=== PATIENT | male | born 1935 | race African-American/Black ===

== ENCOUNTER 2019-10-03 12:25 | Inpatient (IN) | payer MEDICARE, OTHER ==
[~2019-10-03] VITALS: Ht 180.3 cm; Wt 72.6 kg
[2019-10-03] VITALS (9 sets, daily range): BP systolic 88–139; BP diastolic 34–90
[2019-10-03] MEDS ORDERED: ACETAMINOPHEN 650 MG SUPP PR ONE (12:38)
[2019-10-03] MEDS ORDERED: PIPER-TAZ 3.375 GM 50 ML ONE (12:38)
[2019-10-03] MEDS ORDERED: SODIUM CHLORIDE 0.9% 1000ML 3,000 ML ONE (12:38)
[2019-10-03] MEDS ORDERED: PIPER-TAZ 3.375 GM 50 ML IV ONE (12:45)
[2019-10-03 13:48] LABS: BASOPHILS % 0.2 % (0.0-1.0); HEMATOCRIT 34.7 % (38.2-49.6); HEMOGLOBIN 10.2 g/dL (14.0-18.0); LYMPHOCYTES # (AUTO) 0.7 (1.0-3.2); LYMPHOCYTES % 5.2 % (18.0-39.1); MEAN CORPUSCULAR HEMOGLOBIN 24.4 pg (28-32); MEAN CORPUSCULAR HGB CONC 29.4 g/dL (31-35); MONOCYTES # (AUTO) 0.9 (0.2-0.8); MONOCYTES % 6.2 % (4.4-11.3); NEUTROPHILS # (AUTO) 12.4 (2.1-6.9); NEUTROPHILS % 87.6 % (38.7-80.0); PLATELET COUNT 175 x10e3/uL (140-360); RED BLOOD COUNT 4.18 x10e6/uL (4.3-5.7)
[2019-10-03] MEDS ORDERED: HALOPERIDOL LACTATE 5 MG/ML VIAL ONE (13:51)
[2019-10-03 13:55] LABS: INR 1.61; PROTHROMBIN TIME 20.3 seconds (11.9-14.5)
[2019-10-03 13:56] LABS: PARTIAL THROMBOPLASTIN TIME 26.3 seconds (23.8-35.5)
[2019-10-03 13:59] LABS: INFLUENZAE A&B ANTIGEN (RAPID) NEGATIVE (NEGATIVE)
[2019-10-03] MEDS ORDERED: LORAZEPAM INJ 2 MG/ML VIAL IV SCH (14:00)
[2019-10-03 14:05] LABS: ALBUMIN 3.1 g/dL (3.5-5.0); ALBUMIN/GLOBULIN RATIO 0.8 (0.8-2.0); ANION GAP 25.2 mmol/L (8-16); CALCIUM 8.5 mg/dL (8.4-10.2); CREATININE, SERUM 5.02 mg/dL (0.72-1.25); MAGNESIUM 2.6 MG/DL (1.3-2.1); POTASSIUM 4.2 mmol/L (3.5-5.1)
[2019-10-03 14:12] LABS: CREATINE KINASE MB 2.6 ng/mL (0-5.0)
--- NOTE | 2019-10-03 14:33 | Diagnostic Imaging Report ---
TECHNIQUE: Frontal view of the chest. INDICATION: ^SOB ^[id number] ^1315. COMPARISON: None. FINDINGS: LINES/TUBES: None. LUNGS: There is a punctate calcified granuloma over the left base. There is a nodular opacity in the left apex which is associated with some scar and measures 1.3 cm. There is likely scarring and bronchiectasis in the right medial upper lobe. Bilateral nipple shadows. PLEURA: No pneumothorax or significant pleural effusion. HEART AND MEDIASTINUM: The cardiomediastinal silhouette is within normal limits. SOFT TISSUES AND BONES: Cholecystectomy clips in the right upper quadrant. Moderate degenerative changes of the glenohumeral joints. IMPRESSION: 1. No acute intrathoracic abnormality. 2. Scarring and bronchiectasis in the right medial upper lobe. 3. There is some scarring in the left apex along with a nodular opacity which measures 1.3 cm. Further evaluation with a chest CT is recommended on a nonemergent basis to exclude a neoplasm. Signed by: Ezequiel Allen JR, MD on 10/03/2019 2:30 PM
[2019-10-03] MEDS ORDERED: LORAZEPAM INJ 2 MG/ML VIAL IV ONE (15:00)
[2019-10-03 15:18] LABS: CLARITY,URINE CLEAR (CLEAR); COLOR,URINE YELLOW (YELLOW); KETONES,URINE NEGATIVE (NEGATIVE); LEUKOCYTE ESTERASE ,URINE NEGATIVE (NEGATIVE); NITRITE,URINE NEGATIVE (NEGATIVE); PROTEIN,URINE DIPSTICK 1+ (NEGATIVE)
[2019-10-03 15:19] LABS: BILIRUBIN,URINE 1+ (NEGATIVE); URINE UROBILINOGEN 0.2 mg/dL (0.2 - 1)
[2019-10-03 15:32] LABS: BACTERIA,URINE RARE /HPF
[2019-10-03 15:33] LABS: EPITHELIAL CELLS,URINE RARE /LPF
--- OUTSIDE RECORDS SUMMARY | 2019-10-03 16:02 | XMS REPORT ---
Author [facility] Address Unknown Phone Unavailable Care Team Providers Care Component Prep Operator Name Role Phone XAVIER MOTA Unavailable Unavailable Problems This patient has no known problems. Allergies, Adverse Reactions, Alerts This patient has no known allergies or adverse reactions. Medications This patient has no known medications. Results Test Description Test Time Test Comments Text Results Atomic Results Result Comments CHEST SINGLE (PORTABLE) 2019-10-03 14:21:00 [place] [address] Patient Name: TRUDI OROURKE MR #: [id number] : 1935 Age/Sex: 84/M Req #: [id number] Adm Physician: Ordered by: AXVIER MOTA DO Report #: [id number] Location: ER Room/Bed: Procedure: [id number] DX/CHEST SINGLE (PORTABLE) Exam Date: 10/03/19 Exam Time: 1314 REPORT STATUS: Signed TECHNIQUE: Frontal view of the chest. INDICATION: SOB [id number] 1315. COMPARISON: None. FINDINGS: LINES/TUBES: None. LUNGS: There is a punctate calcified granuloma over the left base. There is a nodular opacity in the left apex which is associated with some scar and measures 1.3 cm. There is likely scarring and bronchiectasis in the right medial upper lobe. Bilateral nipple shadows. PLEURA: No pneumothorax or significant pleural effusion. HEART AND MEDIASTINUM: The cardiomediastinal silhouette is within normal limits. SOFT TISSUES AND BONES: Cholecystectomy clips in the right upper quadrant. Moderate degenerative changes of the glenohumeral joints. IMPRESSION: 1. No acute intrathoracic abnormality. 2. Scarring and bronchiectasis in the right medial upper lobe. 3. There is some scarring in the left apex along with a nodular opacity which measures 1.3 cm. Further evaluation with a chest CT is recommended on a nonemergent basis to exclude a neoplasm. Si gned by: Ezequiel Allen JR, MD on 10/03/2019 2:30 PM Dictated By: EZEQUIEL ALLEN MD 1430 Transcribed By: GELACIO on 10/03/19 1430 COPY TO: XAVIER MOTA DO
[2019-10-03] MEDS ORDERED: SODIUM CHLORIDE 0.9% 1000ML 1,000 ML IV SCH ×2 (16:30)
--- NOTE | 2019-10-03 17:01 | NUR ---
NOW IN AFIB CONTROLLED. NO ECTOPY NOTED. MD NOTIFIED OF RHYTHM
[2019-10-03] MEDS ORDERED: DEXTROSE 5% 1,000 ML IV STA (17:06)
[2019-10-03 17:16] LABS: ANION GAP 18.1 mmol/L (8-16); CREATININE, SERUM 4.9 mg/dL (0.72-1.25); POTASSIUM 4.1 mmol/L (3.5-5.1)
[2019-10-03] MEDS ORDERED: FA-80.8 MG (17:38)
[2019-10-03] MEDS ORDERED: AMLODIPINE BESY10 MG (17:38)
[2019-10-03] MEDS ORDERED: NAMENDA XR28 MG (17:38)
[2019-10-03] MEDS ORDERED: FLOMAX0.4 MG (17:38)
[2019-10-03] MEDS ORDERED: TRAZODONE HCL50 MG (17:38)
[2019-10-03] MEDS ORDERED: ALPRAZOLAM0.25 MG (17:38)
[2019-10-03] MEDS ORDERED: XARELTO20 MG (17:38)
[2019-10-03] MEDS ORDERED: DONEPEZIL HCL10 MG (17:38)
[2019-10-03] MEDS ORDERED: FLUOXETINE HCL20 MG (17:38)
--- NOTE | 2019-10-03 20:22 | NUR ---
Pulmonary/CCM [id number] UTI, Pneumonia, r/o other critically ill individual. needs serial neuro checks, serial abdominal checks, serial sodium checks, serial UOP and respiratory checks. family needs to consider advanced directives-- i wanted to make sure they have initiated conversations. They were not available now.
[2019-10-03] MEDS ORDERED: VANCOMYCIN 1GM/NS 250 ML 250 ML IV ONE (20:30)
[2019-10-03] MEDS ORDERED: THIAMINE HCL INJ 100 MG/ML 2ML VIAL IV ONE (21:00)
[2019-10-03 21:02] LABS: LYMPHOCYTES % (MANUAL) 9 % (19-48); METAMYELOCYTES % (MANUAL) 3 % (0-0); MONOCYTES % (MANUAL) 4 % (3.4-9.0); MYELOCYTES % (MANUAL) 3 % (0-0); NEUTROPHILS % (MANUAL) 81 % (40-74)
[2019-10-03 21:03] LABS: HYPOCHROMASIA SLIGHT; PLATELET ESTIMATE ADEQUATE; PLATELET MORPHOLOGY COMMENT NORMAL; RBC MORPHOLOGY COMMENT NORMAL
--- NOTE | 2019-10-03 21:14 | Consultation ---
DATE OF CONSULTATION: 10/03/2019 Pulmonary Critical Care Medicine Consult PRIMARY CARE DOCTOR: Dr. Kothari. HISTORY OF PRESENT ILLNESS: Mr. Salmon is a pleasant 84-year-old gentleman with shortness of breath. The patient had some history of baseline asthma; however, the patient had a pattern of worsening. History was limited, but the patient did come in with hypoxemia, 83% oxygen saturation, but responded to 96% when the patient was suctioned by RT. The patient was obtunded. Chest x-ray performed demonstrating regional right upper lobe pneumonitis. However, of note, the patient is very dehydrated with sodium level 174, BUN 50, creatinine 5.0. CK 370. BNP 254. Albumin 3.1. White count 14. The patient's INR is 1.61. The patient noted with the need for close monitoring, therefore, sent to the ICU. PAST MEDICAL HISTORY: Atrial fibrillation, diverticulosis, hypertension, cholecystectomy, bilateral inguinal hernia repair, cataract repair. MEDICATIONS: Medication list reviewed per the chart record include alprazolam, amlodipine, fluoxetine, Xarelto, tamsulosin, trazodone, donepezil, folic acid, memantine. ALLERGIES: NO KNOWN DRUG ALLERGIES. SOCIAL HISTORY: No smoking, no drinking, no drugs on previous reports. FAMILY HISTORY: Noncontributory to this condition. REVIEW OF SYSTEMS: Unable to get as he is altered. PHYSICAL EXAMINATION: VITAL SIGNS: Afebrile right now, although he had 102.8 upon admission; heart rate 117, decreased to 84; blood pressure recently 88/69. GENERAL: Obtunded, looks pale, in bed. HEENT: Normocephalic and atraumatic. NECK: Supple. Throat midline. LUNGS: Bilateral air entry, limited due to decreased participation, clear. CARDIOVASCULAR: S1 and S2. No murmurs, rubs, or gallops. ABDOMEN: Soft and nontender. EXTREMITIES: No clubbing. No cyanosis. There is no edema. INTEGUMENT: No rash. He does have very mild stasis changes to legs without jose d edema. No purpura. LABORATORY DATA: Influenza antigen negative. Group A Streptococcus testing negative. Urinalysis; 11-20 rbc's, 6-10 wbc's, 4+ hematuria, 25 bicarbonate. Latest sodium came down to 171, latest lactic acid 2.3, latest creatinine 4.9. No ABG yet. IMPRESSION AND PLAN: 1. Severe sepsis, evolving multiorgan dysfunction. 2. Febrile syndrome, sepsis, urinary tract infection, pneumonia. Rule out other conditions. 3. Encephalopathy, toxic/metabolic. Underlying dementia surmise. 4. Critical hypernatremia. 5. Mild anemia. 6. Coagulopathy, likely Xarelto related. Rule out superimposed disseminated intravascular coagulation. 7. Acute kidney failure. 8. Lactic acidosis. 9. Mild hypoalbuminemia, likely worsened. 10. Severe dehydration. 11. Hematuria. 12. Hypertension. 13. Surmise benign prostatic hypertrophy, on Flomax. 14. Atrial fibrillation with rate control. Give slow, steady hydration assay. Followup organ failure. Serial x-rays. Try to avoid intubation, but the patient may need intubation. Follow up viral testing. Continue oxygen per protocol for now. The patient in very critical condition. We will try to fill advance directive to the family and goals of care as the patient at this age will have a tough time responding to his multiorgan dysfunction if it flourishes. Thank you very much, Dr. Castellon, for this consult. Please call for questions. Greater than 30 minutes in direct care and coordination on this date. Multiple evaluation. MD BEE Xiao/MODL /[id number]
[2019-10-03] MEDS: DEXTROSE 5% 1,000 ML IV SCH (21:29)
[2019-10-03] MEDS: HEPARIN SOD (PORCINE) 5,000 UNIT/ML VIAL SC SCH (21:30)
[2019-10-03] MEDS: AZITHROMYCIN 500MG/NS 250 ML 250 ML IV SCH (21:38)
[2019-10-03 23:40] LABS: ANION GAP 20.5 mmol/L (8-16); CALCIUM 8.1 mg/dL (8.4-10.2); CREATININE, SERUM 5.39 mg/dL (0.72-1.25); MAGNESIUM 2.6 MG/DL (1.3-2.1); PHOSPHORUS 7.8 MG/DL (2.3-4.7); POTASSIUM 4.5 mmol/L (3.5-5.1)
[2019-10-04] VITALS (26 sets, daily range): BP systolic 98–154; BP diastolic 62–95
[2019-10-04] MEDS: PIPERACILLIN/TAZO 2.25 GM 50 ML IV SCH ×2 (01:03→05:52)
[2019-10-04] MEDS: DEXTROSE 5% 1,000 ML IV SCH (03:57)
[2019-10-04 04:22] LABS: BASOPHILS % 0.1 % (0.0-1.0); HEMATOCRIT 37.5 % (38.2-49.6); HEMOGLOBIN 10.9 g/dL (14.0-18.0); LYMPHOCYTES # (AUTO) 0.6 (1.0-3.2); LYMPHOCYTES % 5.7 % (18.0-39.1); MEAN CORPUSCULAR HEMOGLOBIN 24.5 pg (28-32); MEAN CORPUSCULAR HGB CONC 29.1 g/dL (31-35); MEAN CORPUSCULAR VOLUME 84.5 fL (81-99); MONOCYTES # (AUTO) 0.7 (0.2-0.8); MONOCYTES % 6.5 % (4.4-11.3); NEUTROPHILS # (AUTO) 8.7 (2.1-6.9); NEUTROPHILS % 87.4 % (38.7-80.0); PLATELET COUNT 117 x10e3/uL (140-360); RED BLOOD COUNT 4.44 x10e6/uL (4.3-5.7); RED CELL DISTRIBUTION WIDTH 21.1 % (11.7-14.4)
[2019-10-04 04:33] LABS: INR 1.55; PROTHROMBIN TIME 19.7 seconds (11.9-14.5)
[2019-10-04 04:34] LABS: PARTIAL THROMBOPLASTIN TIME 31.5 seconds (23.8-35.5)
[2019-10-04 07:36] LABS: ALBUMIN 3.1 g/dL (3.5-5.0); ALBUMIN/GLOBULIN RATIO 0.8 (0.8-2.0); ANION GAP 18.8 mmol/L (8-16); CREATININE, SERUM 5.72 mg/dL (0.72-1.25); MAGNESIUM 2.5 MG/DL (1.3-2.1); PHOSPHORUS 6.8 MG/DL (2.3-4.7); POTASSIUM 4.8 mmol/L (3.5-5.1)
[2019-10-04 07:56] LABS: FERRITIN 68.3 ng/mL (21.81-274.66)
[2019-10-04] MEDS: HEPARIN SOD (PORCINE) 5,000 UNIT/ML VIAL SC SCH ×2 (08:20→20:52)
[2019-10-04 08:24] LABS: BAND NEUTROPHILS % (MANUAL) 3 %; LYMPHOCYTES % (MANUAL) 10 % (19-48); MONOCYTES % (MANUAL) 2 % (3.4-9.0); NEUTROPHILS % (MANUAL) 85 % (40-74); NUCLEATED RED BLOOD CELLS 4
[2019-10-04 08:25] LABS: ANISOCYTOSIS MODERATE; RBC MORPHOLOGY COMMENT ABNORMAL
[2019-10-04 08:26] LABS: OVALOCYTES MODERATE; PLATELET ESTIMATE SLIGHTLY DECREASED; PLATELET MORPHOLOGY COMMENT NORMAL; POLYCHROMASIA FEW
[2019-10-04 08:28] LABS: MICROCYTOSIS SLIGHT; SCHISTOCYTES RARE
[2019-10-04 08:29] LABS: TEAR DROP CELLS FEW
--- NOTE | 2019-10-04 12:11 | NUR ---
Spoke with Dr. Acosta regarding new consult. He will come to see the patient, no new orders received at this time.
--- NOTE | 2019-10-04 12:14 | NUR ---
Pulmonary Critical Care Medicine DATE 10/04/2019 SUBJECTIVE: d5w at 125/hr ivf UOP 300 cc / 12 hours in the night UOP fell to 10-15 cc/hr today AM more awake today, responsive/stated short phrases but weak. oxygen by NRB REVIEW OF SYSTEMS: Unable to get as he is altered. PHYSICAL EXAMINATION: VITAL SIGNS: Vitals reviewed per EMR GENERAL: Lethargic, awakens HEENT: Normocephalic and atraumatic. NECK: Supple. Throat midline. LUNGS: Bilateral air entry, limited due to decreased participation, clear. CARDIOVASCULAR: S1 and S2. No murmurs, rubs, or gallops. ABDOMEN: Soft and nontender. EXTREMITIES: No clubbing. No cyanosis. no edema. INTEGUMENT: No rash. mild stasis changes to legs without jose d edema. LABORATORY DATA: k 4.8, bun 60, cr 5.72, wbc 9.96, hct 37, plt 117. inr 1.55 IMPRESSION AND PLAN: 1. Severe sepsis, evolving multiorgan dysfunction. 2. Urinary tract infection, pneumonia. Rule out other conditions. 3. Encephalopathy, toxic/metabolic. Underlying dementia surmise. 4. Critical hypernatremia. 5. Mild anemia. 6. Coagulopathy, mostly Xarelto related. Rule out superimposed disseminated intravascular coagulation. 7. Acute kidney failure. 8. Lactic acidosis. 9. Mild hypoalbuminemia, likely worsened. 10. Severe dehydration. 11. Hematuria. 12. Hypertension. 13. ? BPH on Flomax. 14. Atrial fibrillation with rate control. Continue steady hydration, serial lytes Additional IVF for UOP issues Follow up viral testing. Continue oxygen per protocol for now. Abx Follow cultures Thank you very much, Dr. Castellon, for this consult. Please call for questions.
--- NOTE | 2019-10-04 12:17 | Diagnostic Imaging Report ---
EXAMINATION: CHEST SINGLE (PORTABLE) INDICATION: Pneumonia COMPARISON: Chest radiograph 10/03/2019 FINDINGS: LINES/TUBES:EKG leads overlie the chest. LUNGS:The lungs are hyperinflated. Biapical pleural parenchymal thickening/scarring. There is perihilar fullness and indistinctness of the pulmonary vasculature. PLEURA:No pleural effusion or pneumothorax. MEDIASTINUM:The cardiomediastinal silhouette appears unchanged in size and shape. BONES/SOFT TISSUES:No acute osseous injury. ABDOMEN:Status post cholecystectomy. IMPRESSION: Interval development of central pulmonary venous congestion and mild pulmonary interstitial edema. Signed by: Blanco Elizabeth MD on 10/04/2019 12:14 PM
[2019-10-04] MEDS ORDERED: DEXTROSE 5% 500ML 500 ML IV ONE (12:30)
[2019-10-04 14:23] LABS: ANION GAP 15.6 mmol/L (8-16); CALCIUM 7.3 mg/dL (8.4-10.2); CREATININE, SERUM 6.11 mg/dL (0.72-1.25); POTASSIUM 4.6 mmol/L (3.5-5.1)
--- NOTE | 2019-10-04 15:10 | Diagnostic Imaging Report ---
EXAM: Renal Ultrasound INDICATION: ^osman COMPARISON: None TECHNIQUE: Transverse and longitudinal images of the kidneys and bladder were obtained. FINDINGS: Right Kidney: Length: 9.1 cm Appearance: Normal echogenicity. Collecting system: No hydronephrosis Stones: None Cyst/Mass: Upper pole 2.0 x 2.2 x 1.8 cm anechoic cyst with a thin internal septation. Midpole 5.6 x 4.7 x 5.0 cm anechoic simple cyst. Left Kidney: Length: 8.9 cm Appearance: Mildly increased echogenicity. Collecting system: No hydronephrosis Stones: None Cyst/Mass: Multiple simple cysts, the largest at the midpole measures 2.7 x 2.8 x 3.0 cm. Bladder: Palmer catheter in the decompressed bladder. IMPRESSION: No hydronephrosis or renal calculi. Mildly increased left renal parenchymal echogenicity. Bilateral renal cysts as above, including a right upper pole cyst which contains thin internal septation (Bosniak 2). Signed by: Blanco Elizabeth MD on 10/04/2019 3:07 PM
[2019-10-04] MEDS ORDERED: SODIUM CHLORIDE 0.45% 1,000 ML ONE (16:42)
[2019-10-04] MEDS: CEFEPIME 1GM/NS 0.9% 50 ML 50 ML IV SCH ×2 (16:45→17:14)
[2019-10-04] MEDS: SODIUM CHLORIDE 0.45% 1,000 ML IV SCH (17:00)
--- NOTE | 2019-10-04 17:02 | Consultation ---
DATE OF CONSULTATION: REASON FOR CONSULTATION: Pneumonia. HISTORY OF PRESENT ILLNESS: This is an 84-year-old gentleman who comes in with shortness of breath. The patient does have underlying history of asthma, atrial fibrillation, diverticulosis, hypertension, bilateral inguinal hernia repair, cholecystectomy, and the patient comes in with shortness of breath, not feeling well. He is currently in the intensive care unit. When he first came, his sodium was 174, BUN is 50, creatinine was 5, and started on IV fluid, and started on IV antibiotic. I am asked to see him. He was already seen by Pulmonary. The patient is really not a good historian. History was taken mainly from the chart. There was concern if he may have sepsis and pneumonia on top his condition. When he first came, his white count was 14.14, hemoglobin of 10. His sodium 173, his creatinine 5.29 with lactic acid of 2.8. He had respiratory panel, all negative. Influenza was negative. Group A was negative. COVID-19 was sent and still pending. The patient is started on Zosyn originally. The patient had a chest x-ray, which shows interval of central pulmonary venous congestion and edema. PHYSICAL EXAMINATION: GENERAL: He is alert, but confused. VITAL SIGNS: Stable. When he first came, temp was 102. HEENT: Normocephalic. CHEST: Few rhonchi. COR: S1, S2. ABDOMEN: Soft. Bowel sounds present. No tenderness. EXTREMITIES: No edema. IMPRESSION: 1. Sepsis, present on admission. 2. Acute on chronic kidney disease. 3. Concerned about aspiration pneumonia. 4. Dehydration. 5. Hypernatremia. PLAN: 1. We will put the patient on cefepime and azithromycin. Await blood cultures and urine cultures. COVID-19 was sent. 2. Continue supportive care. Prognosis is poor. We will discuss with the family. Discuss with medical team. MD JAME Viera/KANDY /[id number]
--- NOTE | 2019-10-04 19:37 | Consultation ---
DATE OF CONSULTATION: 10/04/2019 Renal Consultation REASON FOR CONSULTATION: Acute kidney injury, hypernatremia. HISTORY OF PRESENT ILLNESS: An 84-year-old male with history of hypertension, presented to [facility] with shortness of breath. The patient is arousable, but unable to give any history. History is taken from nursing as well as medical record. When the patient arrived, he was hypoxic with a saturation of 83% and was placed on oxygen and suction by respiratory therapy and his oxygen saturation improved. The patient was obtunded. He was found to have right upper lobe pneumonitis, was placed in respiratory isolation and started on hypertonic fluids. The patient developed worsening kidney function and Nephrology consultation was called. REVIEW OF SYSTEMS: Unable to obtain, as the patient is confused. PAST MEDICAL HISTORY: 1. Atrial fibrillation. 2. History of diverticulosis. 3. Hypertension. 4. Asthma. PAST SURGICAL HISTORY: 1. Bilateral inguinal hernia repair. 2. Cataract surgery. 3. Cholecystectomy. SOCIAL HISTORY: No tobacco. No alcohol. No IV drugs. FAMILY HISTORY: Noncontributory. ALLERGIES: NO KNOWN DRUG ALLERGIES. CURRENT MEDICATIONS: See list. PHYSICAL EXAMINATION: VITAL SIGNS: Blood pressure 120/76, pulse 77, temperature 98.3, temperature was 102.8 when he arrived, and respiratory rate 20 to 32. GENERAL: No apparent distress. Lethargic. HEENT: Oropharynx clear. No scleral icterus. No peripheral edema. NECK: Supple. No elevation of jugular venous pressure. No lymphadenopathy. CHEST: Decreased breath sounds at bases anteriorly bilaterally. CARDIOVASCULAR: Regular rhythm. No murmurs or rubs. ABDOMEN: Soft. Positive bowel sounds. No tenderness. No rebound. EXTREMITIES: No edema, clubbing, or cyanosis. : Palmer catheter with dark urine. LABORATORY DATA: White count 9.6, down from 14.4, hemoglobin 10.9, platelets 117, down from 175. Sodium 159, down from 168, potassium 4.6, chloride 22, BUN 66, creatinine 6.11, glucose 309, lactic acid 2.8, calcium 7.3, magnesium 2.5. Lactic dehydrogenase 3.59. Blood cultures are no growth after 24 hours. ASSESSMENT AND PLAN: 1. Acute kidney injury, suspect secondary to acute tubular necrosis. Continue IV fluids. If continues to worsen, we will initiate dialysis in the morning. 2. Volume deplete on exam. Discussed with Dr. Bangura. Continue gentle IV fluids. 3. Hypernatremia. Continue to correct over 48 hours. We will correct sodium no faster than 0.5 mmol/L/hour. 4. Pneumonia. Continue with broad-spectrum antibiotics. 5. Diabetes per primary team. MD ASHLEY Barajas/[place] /[id number]
[2019-10-04] MEDS: AZITHROMYCIN 500MG/NS 250 ML 250 ML IV SCH (21:21)
[2019-10-05] VITALS (26 sets, daily range): BP systolic 78–134; BP diastolic 49–95
[2019-10-05 05:36] LABS: BASOPHILS % 0.1 % (0.0-1.0); HEMATOCRIT 29.5 % (38.2-49.6); HEMOGLOBIN 9.1 g/dL (14.0-18.0); LYMPHOCYTES # (AUTO) 0.5 (1.0-3.2); LYMPHOCYTES % 5.3 % (18.0-39.1); MEAN CORPUSCULAR HEMOGLOBIN 25.1 pg (28-32); MEAN CORPUSCULAR HGB CONC 30.8 g/dL (31-35); MEAN CORPUSCULAR VOLUME 81.5 fL (81-99); MONOCYTES # (AUTO) 0.3 (0.2-0.8); MONOCYTES % 3.6 % (4.4-11.3); NEUTROPHILS # (AUTO) 7.8 (2.1-6.9); NEUTROPHILS % 90.1 % (38.7-80.0); PLATELET COUNT 99 x10e3/uL (140-360); RED BLOOD COUNT 3.62 x10e6/uL (4.3-5.7); RED CELL DISTRIBUTION WIDTH 20.1 % (11.7-14.4)
[2019-10-05 05:55] LABS: ALBUMIN 2.4 g/dL (3.5-5.0); ALBUMIN/GLOBULIN RATIO 0.7 (0.8-2.0); ANION GAP 15.2 mmol/L (8-16); CALCIUM 7.8 mg/dL (8.4-10.2); CREATININE, SERUM 7.27 mg/dL (0.72-1.25); MAGNESIUM 2.3 MG/DL (1.3-2.1); PHOSPHORUS 5.5 MG/DL (2.3-4.7); POTASSIUM 4.2 mmol/L (3.5-5.1)
--- NOTE | 2019-10-05 07:02 | NUR ---
Call placed for Dr. Cantu regarding AM labds, awaiting return call
[2019-10-05 08:42] LABS: BAND NEUTROPHILS % (MANUAL) 7 %; LYMPHOCYTES % (MANUAL) 5 % (19-48); MONOCYTES % (MANUAL) 1 % (3.4-9.0); MYELOCYTES % (MANUAL) 1 % (0-0); NEUTROPHILS % (MANUAL) 86 % (40-74); NUCLEATED RED BLOOD CELLS 2
[2019-10-05] MEDS: DEXTROSE 5% 1,000 ML IV SCH (08:42)
[2019-10-05 08:43] LABS: ANISOCYTOSIS MODERATE; OVALOCYTES MODERATE; RBC MORPHOLOGY COMMENT ABNORMAL; SCHISTOCYTES FEW
[2019-10-05 08:44] LABS: ELLIPTOCYTE, RBC SLIGHT; PLATELET ESTIMATE MODERATELY DECREASED
[2019-10-05] MEDS: HEPARIN SOD (PORCINE) 5,000 UNIT/ML VIAL SC SCH ×2 (08:44→20:39)
[2019-10-05 08:45] LABS: PLATELET MORPHOLOGY COMMENT NORMAL
[2019-10-05] MEDS ORDERED: LIDOCAINE HCL 2% LOCAL 20 ML VIAL ONE (11:05)
--- NOTE | 2019-10-05 11:05 | NUR ---
WOUND CARE CONSULT FOR _84_ YO MALE HX OFHYPERNATREMIA TOBY 13 ON MODERATE PUP STATUS AND INTERVENTIONS ANDAALTERNATING PRESSURE MATTRESS LABS: WBC-9.96 HGB_10.9 GLUCOSE-216 SKIN ASSESSMENT COMPLETE PATIENT PRESENTS WITH LEFT BUTTOCKS STAGE 2 ULCERATION 4CM X2CM X.1CM DEROOFED BLISTER SCALEY DRY LEGS BILATERALLY RECOMMENDATIONS: NURSING TO CONTINUE TO MAINTAIN MODERATE PUP STATUS AND INTERVENTIONS AND ALTERNATING PRESSURE_ MATTRESS NURSING TO CONTINUE TO ASSIST PATIENT OUT OF BED FOR MEALS AND MUCH TOLERATED NURSING TO CONTINUE TO ASSIST PATIENT NEEDED WITH MEALS AND NUTRITIONAL SUPPLEMENTS TO ENSURE PROPER REQUIREMENTS FOR HEALING NURSING TO CONTINUE TO OFFLOAD FEET AND HEELS NEEDED WITH PILLOW SUSPENSION WHEN IN BED NURSING TO CLEAN LEFT BUTTOCKS STAGE 2 ULCERATION DEROOFED BLISTER AND SCALEY DRY LEGS BILATERALLY WITH NORMAL SALINE DAILY AND APPLY VENELEX OINTMENT AND ALLEVYN FOAM DRESSING
[2019-10-05] MEDS ORDERED: HEPARIN SOD (PORCINE) 1000 UNIT/ML SDV ONE (11:17)
--- NOTE | 2019-10-05 11:54 | Progress Note ---
DATE: SUBJECTIVE: Mr. Salmon remains in the intensive care unit. There had been discussion today with the family about hospice for the patient who is noncommunicative. His COVID-19 was negative. The patient does have underlying history of atrial fibrillation, diverticulosis, hypertension, asthma with acute kidney injury. LABORATORY DATA: His white count is 8.6, hemoglobin 9.1. His COVID-19 is still pending. His blood cultures showed gram-positive rods. IMPRESSION: 1. Bacteremia gram-positive rods. 2. Acute on chronic kidney disease. 3. Sepsis on admission. 4. Concern about aspiration pneumonia. 5. Metabolic encephalopathy, underlying dementia, coagulopathy. PLAN: Continue with vancomycin and cefepime. Can discontinue azithromycin. Dialysis to be started today. Prognosis remains poor, but we will follow. MD JAME Viera/[place] /[id number]
[2019-10-05] MEDS ORDERED: SODIUM CHLORIDE 0.9% 250ML 500 ML IV PRN (13:00)
[2019-10-05] MEDS ORDERED: MANNITOL 25% 12.5GM/50 ML VIAL IV PRN (13:00)
[2019-10-05] MEDS ORDERED: ALBUMIN 25% 12.5GM 0.25 GM/ML BTL IV PRN (13:00)
[2019-10-05] MEDS ORDERED: SODIUM CHLORIDE 0.9% 1000ML 2,000 ML ONE (13:00)
[2019-10-05] MEDS ORDERED: HEPARIN SOD (PORCINE) 1000 UNIT/ML SDV IV PRN (13:00)
[2019-10-05] MEDS ORDERED: SODIUM CHLORIDE 0.9% 1000ML 2,000 ML IV PRN (13:00)
--- NOTE | 2019-10-05 13:15 | Diagnostic Imaging Report ---
EXAMINATION: CHEST SINGLE (PORTABLE) INDICATION: Pneumonia COMPARISON: Chest radiograph 10/04/2019 FINDINGS: LINES/TUBES:Interval placement of right IJ nontunneled trialysis catheter with tip at the superior cavoatrial junction. LUNGS:The lungs are well-inflated. There is perihilar fullness and indistinctness of the pulmonary vasculature. PLEURA:No pleural effusion or pneumothorax. MEDIASTINUM:The cardiomediastinal silhouette appears unchanged in size and shape. Atherosclerotic calcifications of the thoracic aorta. BONES/SOFT TISSUES:No acute osseous injury. ABDOMEN:No free air under the diaphragm. IMPRESSION: Interval placement of right IJ nontunneled trialysis catheter with tip at cavoatrial junction. Line is ready for immediate use. Otherwise, no significant interval change. Signed by: Blanco Elizabeth MD on 10/05/2019 1:11 PM
[2019-10-05] MEDS: BALSAM PERU/CASTOR OIL 60 GM OINT...G. TP SCH (14:36)
--- NOTE | 2019-10-05 14:59 | NUR ---
Pulmonary Critical Care Medicine DATE 10/05/2019 SUBJECTIVE: 75 cc UOP / 12 hrs HD starting today, trialysis placed not eating, ao x 0-1. lethargic NRB , 100% sat REVIEW OF SYSTEMS: Unable to get as he is altered. PHYSICAL EXAMINATION: VITAL SIGNS: Vitals reviewed per EMR GENERAL: Lethargic, awakens HEENT: Normocephalic and atraumatic. NECK: Supple. Throat midline. LUNGS: Bilateral air entry, limited due to decreased participation, clear. CARDIOVASCULAR: S1 and S2. No murmurs, rubs, or gallops. ABDOMEN: Soft and nontender. EXTREMITIES: No clubbing. No cyanosis. no edema. INTEGUMENT: No rash. mild stasis changes to legs without jose d edema. LABORATORY DATA: bun 73, cr 7.3. na 160. plt 99 IMPRESSION AND PLAN: 1. Severe sepsis, evolving multiorgan dysfunction. --BCX septicemia GPR? 2. Urinary tract infection, pneumonia. Rule out other conditions. 3. Encephalopathy, toxic/metabolic. Underlying dementia surmise. 4. Critical hypernatremia. 5. Mild anemia. 6. Coagulopathy, mostly Xarelto related. Rule out superimposed disseminated intravascular coagulation. 7. Acute kidney failure. 8. Lactic acidosis. 9. Mild hypoalbuminemia, likely worsened. 10. Severe dehydration. 11. Hematuria. 12. Hypertension. 13. ? BPH on Flomax. 14. Atrial fibrillation with rate control. Continue steady hydration, serial lytes HD today, slow correction of Na if feasible Follow up viral testing for COVID 19. Continue oxygen per protocol for now. Abx Follow cultures Consider NGT placement today, especially if COVID negative or if aerosilization cautions are being utilized and we are gowned.. Potentially Nepro 35/hr. Thank you very much, Dr. Castellon, for this consult. Please call for questions.
--- NOTE | 2019-10-05 16:38 | Diagnostic Imaging Report ---
PROCEDURE: Non-tunneled temporary dialysis catheter placement Procedural Personnel Attending physician(s): Blanco Elizabeth MD Fellow physician(s): None Resident physician(s): None Advanced practice provider(s): None Pre-procedure diagnosis: COLIN Post-procedure diagnosis: Same Indication: Performance of hemodialysis Additional clinical history: None Complications: No immediate complications. IMPRESSION: Insertion of right-sided non-tunneled triple-lumen temporary dialysis catheter. Plan: Postprocedural chest radiograph shows tip in the cavoatrial junction. The catheter may be used immediately. PROCEDURE SUMMARY: - Venous access with ultrasound guidance - Non-tunneled central venous catheter insertion - Additional procedure(s): None PROCEDURE DETAILS: Pre-procedure Consent: Informed consent for the procedure including risks, benefits and alternatives was obtained and time-out was performed prior to the procedure. Preparation (MIPS): The site was prepared and draped using all elements of maximal sterile barrier technique including sterile gloves, sterile gown, cap, mask, large sterile sheet, sterile ultrasound probe cover, hand hygiene and cutaneous antisepsis with 2% chlorhexidine. Medical reason for site preparation exception (MIPS): Not applicable Anesthesia/sedation Level of anesthesia/sedation: No sedation Anesthesia/sedation administered by: Independent trained observer under attending supervision with continuous monitoring of the patient?s level of consciousness and physiologic status Total intra-service sedation time (minutes): NA Access Local anesthesia was administered. The vessel was sonographically evaluated and determined to be patent. Real time ultrasound was used to visualize needle entry into the vessel and a permanent image was stored. Vein accessed: Internal jugular vein Access technique: Micropuncture set with 21 gauge needle Catheter placement The access site was dilated and the catheter was placed into the vein over a wire . A sterile dressing was applied. Catheter placed: Bard Catheter size (Azerbaijani): 13 Catheter length (cm): 15 Catheter flush: Heparin (1000 units/mL) Catheter securement technique: Non-absorbable suture Contrast Contrast agent: None Contrast volume (mL): N.A Radiation Dose None Additional Details Additional description of procedure: None Equipment details: None Specimens removed: None Estimated blood loss (mL): Less than 10 Standardized report: [id number] Attestation Signer name: Blanco Elizabeth MD I attest that I was present for the entire procedure. I reviewed the stored images and agree with the report as written. Signed by: Blanco Elizabeth MD on 10/05/2019 4:35 PM
[2019-10-05] MEDS: VANCOMYCIN 1GM/NS 250 ML 250 ML IV SCH (20:38)
[2019-10-05] MEDS: AZITHROMYCIN 500MG/NS 250 ML 250 ML IV SCH (22:00)
[2019-10-06] VITALS (26 sets, daily range): BP systolic 81–141; BP diastolic 54–88
[2019-10-06 06:13] LABS: HEMATOCRIT 26.1 % (38.2-49.6); LYMPHOCYTES # (AUTO) 0.4 (1.0-3.2); LYMPHOCYTES % 3.5 % (18.0-39.1); MEAN CORPUSCULAR HEMOGLOBIN 24.1 pg (28-32); MEAN CORPUSCULAR HGB CONC 30.7 g/dL (31-35); MEAN CORPUSCULAR VOLUME 78.6 fL (81-99); MONOCYTES # (AUTO) 0.4 (0.2-0.8); MONOCYTES % 2.9 % (4.4-11.3); NEUTROPHILS # (AUTO) 11.4 (2.1-6.9); NEUTROPHILS % 90.7 % (38.7-80.0); PLATELET COUNT 79 x10e3/uL (140-360); RED BLOOD COUNT 3.32 x10e6/uL (4.3-5.7); RED CELL DISTRIBUTION WIDTH 19.6 % (11.7-14.4)
[2019-10-06 06:28] LABS: INR 1.32; PROTHROMBIN TIME 17.3 seconds (11.9-14.5)
[2019-10-06 06:29] LABS: PARTIAL THROMBOPLASTIN TIME 43.8 seconds (23.8-35.5)
[2019-10-06 06:41] LABS: ALBUMIN 2.5 g/dL (3.5-5.0); ALBUMIN/GLOBULIN RATIO 0.7 (0.8-2.0); ANION GAP 13.7 mmol/L (8-16); CALCIUM 8.2 mg/dL (8.4-10.2); CREATININE, SERUM 5.66 mg/dL (0.72-1.25); MAGNESIUM 1.9 MG/DL (1.3-2.1); POTASSIUM 3.7 mmol/L (3.5-5.1)
[2019-10-06 06:54] LABS: PHOSPHORUS 4.3 MG/DL (2.3-4.7)
[2019-10-06 08:59] LABS: BAND NEUTROPHILS % (MANUAL) 5 %; LYMPHOCYTES % (MANUAL) 3 % (19-48); MONOCYTES % (MANUAL) 3 % (3.4-9.0); NEUTROPHILS % (MANUAL) 89 % (40-74); OVALOCYTES MODERATE
[2019-10-06 09:00] LABS: ANISOCYTOSIS MODERATE; PLATELET ESTIMATE MODERATELY DECREASED; PLATELET MORPHOLOGY COMMENT NORMAL; RBC MORPHOLOGY COMMENT ABNORMAL
[2019-10-06] MEDS: HEPARIN SOD (PORCINE) 5,000 UNIT/ML VIAL SC SCH ×2 (09:00→20:19)
[2019-10-06 09:01] LABS: ELLIPTOCYTE, RBC SLIGHT; POIKILOCYTOSIS SLIGHT
[2019-10-06] MEDS: BALSAM PERU/CASTOR OIL 60 GM OINT...G. TP SCH (09:06)
[2019-10-06] MEDS: DEXTROSE 5% 1,000 ML IV SCH (09:06)
--- NOTE | 2019-10-06 10:05 | Diagnostic Imaging Report ---
EXAM: CHEST SINGLE (PORTABLE) DATE: 10/06/2019 5:00 AM INDICATION: Pneumonia COMPARISON: Multiple prior chest radiograph, last dating 10/05/2019 FINDINGS: Right-sided nontunneled dialysis catheter identified in stable position with tip overlying the cavoatrial junction. The trachea is midline. Again noted is perihilar fullness and prominence of the central pulmonary vasculature. There are bibasilar opacities which may represent atelectasis. There is blunting of the right costophrenic angle and a small effusion is possible. No significant pleural effusion is present. The cardiomediastinal silhouette is stable in appearance. No acute osseous abnormality is identified. IMPRESSION: No significant interval change from 10/05/2019. Stable perihilar fullness and prominence of central pulmonary vasculature which can be seen in the setting of edema. Signed by: Dr. Edu Vega MD on 10/06/2019 10:02 AM
[2019-10-06] MEDS ORDERED: AMIODARONE 900MG 500 ML IV SCH (11:00)
--- NOTE | 2019-10-06 13:20 | Progress Note ---
DATE: SUBJECTIVE: Mr. Luis Antonio Fletcher remains in intensive care unit, but seems a little bit better, still noncommunicative. His blood cultures showing gram-positive rods. LABORATORY DATA: Today, white count is 12.6 and hemoglobin of 8. Sodium 145 and potassium 3.7. His COVID-19 was negative. PHYSICAL EXAMINATION: GENERAL: Noncommunicative. VITAL SIGNS: Stable. Afebrile. HEENT: Not icteric. NECK: Supple. CHEST: Few crackles bilaterally. HEART: S1 and S2. No S3, S4, or murmur. ABDOMEN: Soft. IMPRESSION: 1. Sepsis on admission, clinically seems to be better. 2. Bacteremia gram-positive rods, probably contamination. 3. Acute on chronic kidney disease. 4. Aspiration pneumonia. 5. Metabolic encephalopathy. PLAN: 1. He is currently on vancomycin and cefepime. We will discontinue azithromycin. 2. Continue supportive care. Consider LTAC. We will follow. MD JAME Viera/KANDY /[id number]
--- NOTE | 2019-10-06 13:33 | NUR ---
Pulmonary Critical Care Medicine DATE 10/06/2019 SUBJECTIVE: HD 1.5 L negative goal NRB weller with poor output d5w at 50/hr ivf obtunded REVIEW OF SYSTEMS: Unable to get as he is altered. PHYSICAL EXAMINATION: VITAL SIGNS: Vitals reviewed per EMR GENERAL: obtunded, on HD HEENT: Normocephalic and atraumatic. NECK: Supple. Throat midline. LUNGS: Bilateral air entry, limited due to decreased participation, clear. CARDIOVASCULAR: S1 and S2. No murmurs, rubs, or gallops. ABDOMEN: Soft and nontender. EXTREMITIES: No clubbing. No cyanosis. no edema. INTEGUMENT: No rash. mild stasis changes to legs without jose d edema. LABORATORY DATA: bun 50, cr 5.6. 23 hco3. k 3.7. 145 na. wbc 12.6, hct 26, plt 79. IMPRESSION AND PLAN: 1. Severe sepsis, evolving multiorgan dysfunction. --BCX septicemia GPR? 2. Urinary tract infection, pneumonia. Rule out other conditions. 3. Encephalopathy, toxic/metabolic. Underlying dementia surmise. 4. Critical hypernatremia. 5. Mild anemia. 6. Coagulopathy, mostly Xarelto related. Rule out superimposed disseminated intravascular coagulation. 7. Acute kidney failure. 8. Lactic acidosis. 9. Mild hypoalbuminemia, likely worsened. 10. Severe dehydration. 11. Hematuria. 12. Hypertension. 13. ? BPH on Flomax. 14. Atrial fibrillation with rate control. 15. low platelets Continue steady hydration, serial lytes HD today Follow up viral testing for COVID 19. Follow cultures to final, identify culture organism Continue oxygen per protocol for now. Abx Follow cultures Consider NGT placement today, especially if COVID negative or if aerosilization cautions are being utilized or if we are gowned. Potentially Nepro 35/hr. check HIT ab Thank you very much, Dr. Castellon, for this consult. Please call for questions.
--- NOTE | 2019-10-06 14:41 | Consultation ---
DATE OF CONSULTATION: 10/06/2019 Cardiology consultation. REASON FOR CONSULTATION: Recurrent arrhythmias. HISTORY OF PRESENT ILLNESS: Mr. Salmon is an 84-year-old gentleman who is currently in critical condition in isolation in the ICU, on a non-rebreather mask, breathing 40 times a minute and in hypoxic respiratory failure. He is noted to have periods of desaturations and when he desaturates, he goes into what appears to be atrial tachycardia with heart rates in the 150s to 160s beats per minute and once the respiratory status stabilizes, his heart rate goes back down to the 80s and sinus rhythm. We cannot obtain any history based on grimacing and altered mental state. The patient is reported by staff to have come in from home. He has baseline, which seems to be cognitive impairment and probably some atrial arrhythmias, as he is on anticoagulant therapy with Xarelto. He was noted to have failure to thrive symptoms upon arrival, covered in feces, noted to have right upper lobe pneumonitis, and was an COLIN with severe dehydration and severe protein calorie malnutrition. He is noted to be with a sodium level of 174 upon arrival and creatinine over 5. The patient was noted to have fevers up to 103 and periods of rapid heart rate. Currently, again, he is in critical condition in the isolation with non-rebreather mask on and again cannot collaborate any history as all he does is grimaces and moans. PAST MEDICAL HISTORY: 1. Reported history of atrial fibrillation. 2. Diverticulosis. 3. Hypertension. 4. Cholecystectomy. 5. Bilateral inguinal hernia repair surgery. 6. Cataract surgery. FAMILY HISTORY: Unable to be obtained secondary to condition. SOCIAL HISTORY: Unable to be obtained secondary to condition. REVIEW OF SYSTEMS: Unavailable to obtain secondary to medical conditions. ALLERGIES: NO KNOWN DRUG ALLERGIES. HOME MEDICATIONS: List includes: 1. Alprazolam p.r.n. 2. Norvasc. 3. Donepezil. 4. Fluoxetine. 5. Folate. 6. Namenda. 7. Xarelto. 8. Tamsulosin. 9. Trazodone p.r.n. PHYSICAL EXAMINATION: VITAL SIGNS: Height of 71 inches, weight of 162 pounds, BMI is 22.6, temperature of 99.5, pulse of 95, but intermittent and goes up to the 170s with atrial tachycardia, respiratory rate of 40 times a minute, blood pressure 138/72, O2 saturation is labile, going from 70s to 90s percent on non-rebreather. GENERAL: This is an emaciated, frail, wasted gentleman, who is currently in severe respiratory distress. HEENT: Pupils equal, round, reactive to light. Extraocular movements are intact. Oropharynx is clear neck there is decreased skin turgor. No JVD. CARDIOVASCULAR: Regular rate and rhythm. Normal S1, S2. Soft 2/6 systolic ejection murmur at the right upper sternal border. LUNGS: Coarse rales, rhonchi, wheezes and poor air flow throughout lung hall. ABDOMEN: skinny, scaphoid, nontender, normoactive bowel sounds. BACK: No costovertebral angle tenderness. EXTREMITIES: Skinny, wasted, frail with diminished pedal pulses. NEUROLOGIC: He is altered. He withdraws to pain and noncooperative. LABORATORY DATA: White count of 12.6, hemoglobin 8.0, hematocrit 26.1, and platelets of 79. Sodium is 145, potassium 3.7, chloride 112, bicarb 23, BUN 50, creatinine 5.66, glucose of 102, calcium of 8.2, magnesium 1.9, phos 4.3, AST 67, ALT 48, alkaline phosphatase is 48, total protein of 6.1, albumin of 2.5. LDH was 359. Sodium previously had been all the way up to 174 on admission. INR is 1.32. UA shows 6 to 10 white cells. Adenovirus and Coronavirus PCRs negative. Parainfluenza negative. IMAGING: Chest x-ray shows perihilar fullness and central pulmonary vascular prominence, can be seen in the setting of edema. Renal ultrasound shows no hydronephrosis and bilateral renal stents. DIAGNOSES: 1. Severe sepsis with evidence of pneumonia. 2. Acute kidney injury. 3. Failure to thrive. 4. Severe hypernatremia. 5. Paroxysmal atrial arrhythmias in a gentleman, who is known to have paroxysmal atrial fibrillation. 6. Acute hypoxic respiratory failure. 7. Thrombocytopenia. 8. Disseminated intravascular coagulation. PLAN/RECOMMENDATIONS: 1. From a cardiovascular standpoint, we will go ahead and put him on amiodarone therapy for rhythm control. However, suspect he will continue to have rhythm issues as his respiratory state is poor and could be impending respiratory failure. 2. Appreciate ID Service who is managing antibiotic and antiinfectious issues. 3. Supportive from a cardiovascular standpoint. 4. Recommend aggressive discussion in terms of goals of care as this gentleman has a high likelihood of impending morbidity and mortality as well as impending hypoxic respiratory failure. 5. We will continue to follow this patient. Thank you for this referral. MD HEIKE De Los Santos/KANDY /[id number]
[2019-10-06] MEDS: CEFEPIME 1GM/NS 0.9% 50 ML 50 ML IV SCH (15:18)
[2019-10-06] MEDS: EPOETIN ALFA-EPBX 10,000 UNIT/ML VIAL SC SCH (16:22)
--- NOTE | 2019-10-06 16:42 | NUR ---
Nutrition Intervention Note RD Recommendation(s) for Physician: If pt is not alert enough for PO intake, consider enteral nutrition rec. Nepro @ goal rate of 55 mL/hr (provides 2376 kcal, 107 g protein, and 960 mL water) -Water flush per MD If pt is alert for PO intake, recommend renal diet Plan of Care: RD following, monitoring for tolerance and adequacy Nutrition reason for involvement: Nutrition Risk Trigger MST 2 RD Assessment (10/06/19) Pt is an 84 year old male admitted with hypernatremia. Pt was started on dialysis due to COLIN. Pt has altered mental status; therefore, unable to obtain information from patient. No recent weight history in chart. Pt is not eating per MD note and MD recommended to consider enteral nutrition. Will continue to monitor Principal Problems/Diagnoses: hypernatremia PMH: afib, diverticulosis, HTN, cholecystectomy, bilateral inguinal hernia, asthma I/O: 1400/70 IVF: Dextrose @ 50 mL/hr GI: soft, non-tender round abdomen, last recorded BM 10/05 Skin: stage 2 left buttock pressure ulcer Labs: (10/06/19) BUN 50, Creat 5.66, Ca 8.2 Meds: antibiotics, heparin, mannitol Ht:71 inches Wt: 162 lbs BMI: 22.6 kg/m2 IBW: 172 lbs Malnutrition Evaluation (10/06/19) Unable to assess at this time. Will re-evaluate at follow-up as appropriate. Nutrition Prescription (Diet Order): cardiac diet Estimated Nutritional Needs: 2209 2577 calories/day (30-35 kcal/kg CBW) 88-110 g protein/day (1.2-1.5 g pro/kg CBW) Diet Adequacy: Not meeting calorie needs, Not meeting protein needs Tolerance: N/A Diet Education Needs Assessment: Diet education not indicated at this time Nutrition Care Level: low Nutrition Diagnosis: Inadequate energy intake related to altered mental status as evidenced by pt not eating per MD Note. Goal: Patient will meet 75-100% of estimated needs by follow up Progress: N/A Interventions: -mineral modified diet, Composition, Rate, Route, Recommended Modifications Monitoring/Evaluation: -Total energy intake, Total protein intake, Formula/Solution, Modified diet, Weight change Signed: Zeina Wei RD, LD Addendum: 10/07/19 at 1659 by Zeina Wei DIET pt is moderate nutrition care level
[2019-10-06] MEDS: VANCOMYCIN 1GM/NS 250 ML 250 ML IV SCH (20:14)
[2019-10-07] VITALS (26 sets, daily range): BP systolic 94–131; BP diastolic 58–89
--- NOTE | 2019-10-07 00:57 | Diagnostic Imaging Report ---
EXAMINATION: ABDOMEN-1VIEW (KUB) INDICATION: NG tube insertion. COMPARISON: Chest radiograph 10/06/2019. FINDINGS/IMPRESSION: Enteric tube terminates in the stomach. Paucity of gas within the bowel. Status post cholecystectomy. Please refer to chest radiograph from 10/06/2019 for details of intrathoracic findings. Signed by: Dr. Tiffanie Palmer MD on 10/07/2019 12:53 AM
[2019-10-07] MEDS: DEXTROSE 5% 1,000 ML IV SCH (04:55)
[2019-10-07 06:26] LABS: BASOPHILS % 0.1 % (0.0-1.0); EOSINOPHILS % 0.1 % (0.0-6.0); HEMATOCRIT 26.1 % (38.2-49.6); HEMOGLOBIN 8.3 g/dL (14.0-18.0); LYMPHOCYTES # (AUTO) 0.4 (1.0-3.2); LYMPHOCYTES % 2.7 % (18.0-39.1); MEAN CORPUSCULAR HEMOGLOBIN 24.5 pg (28-32); MEAN CORPUSCULAR HGB CONC 31.8 g/dL (31-35); MONOCYTES # (AUTO) 0.6 (0.2-0.8); NEUTROPHILS # (AUTO) 13.8 (2.1-6.9); NEUTROPHILS % 91.7 % (38.7-80.0); PLATELET COUNT 94 x10e3/uL (140-360); RED BLOOD COUNT 3.39 x10e6/uL (4.3-5.7); RED CELL DISTRIBUTION WIDTH 19.1 % (11.7-14.4)
[2019-10-07 06:41] LABS: ANION GAP 14.7 mmol/L (8-16); CALCIUM 8.1 mg/dL (8.4-10.2); CREATININE, SERUM 3.85 mg/dL (0.72-1.25); MAGNESIUM 1.9 MG/DL (1.3-2.1); PHOSPHORUS 4.1 MG/DL (2.3-4.7); POTASSIUM 3.7 mmol/L (3.5-5.1)
[2019-10-07] MEDS ORDERED: GUAIFENESIN/CODEINE 10 ML CUP PO PRN (08:15)
[2019-10-07] MEDS: BALSAM PERU/CASTOR OIL 60 GM OINT...G. TP SCH (08:29)
[2019-10-07] MEDS: HEPARIN SOD (PORCINE) 5,000 UNIT/ML VIAL SC SCH ×2 (08:32→22:12)
[2019-10-07] MEDS: AMIODARONE HCL 200 MG TAB PO SCH ×2 (09:00→16:00)
--- NOTE | 2019-10-07 13:38 | NUR ---
SPOKE WITH VIVIEN OROURKE DAUGHTER GOT CHOICE FOR [facility], FILED CHOICE IN CHART, FAXED CLINICALS TO ADMISSION LINE. TEXTED REP TO LET KNOW REFERRAL ON WAY, STARTED MOT AND ATTACHED TO PACKET.
--- NOTE | 2019-10-07 13:52 | NUR ---
DAUGHTER VIVIEN STATES HOME NUMBER IS [phone] IF SHE NEEDS TO BE REACHED.
--- NOTE | 2019-10-07 14:05 | Progress Note ---
DATE: SUBJECTIVE: Mr. Salmon remains in intensive care unit, but clinically seems to be doing well, stable. He has been seen by Cardiology. REVIEW OF SYSTEMS: He seems a little bit more alert. OBJECTIVE: VITAL SIGNS: His vitals are stable. No fever. HEENT: Normocephalic. CHEST: Few crackles bilateral. HEART: S1 and S2. ABDOMEN: Soft. Bowel sounds present. No tenderness. EXTREMITIES: No edema. LABORATORY DATA: His white count went up to 15.7. There is no new information with the blood cultures. IMPRESSION: 1. Sepsis on admission, resolving. The patient would benefit from going to an LTAC. 2. Diverticulosis. 3. Hypertension. 4. History of cholecystectomy. 5. History of hernia repair. 6. Slika-fx-tjgegkw kidney injury. 7. Failure to thrive. 8. Hypernatremia. 9. Paroxysmal atrial fibrillation. 10. Bacteremia, gram-positive rods, probably contamination. 11. Aspiration pneumonia with congestive heart failure, clinically improving slowly. Currently on vancomycin and cefepime. Concern about aspiration. He would benefit from going to an LTAC for further rehab and close observation. MD JAME Viera/KANDY /[id number]
[2019-10-07] MEDS: CEFEPIME 1GM/NS 0.9% 50 ML 50 ML IV SCH (15:01)
[2019-10-07] MEDS: VANCOMYCIN 1GM/NS 250 ML 250 ML IV SCH (16:33)
--- NOTE | 2019-10-07 18:05 | NUR ---
Pulmonary attending I saw and examined the patient on 10/07/19 with Angeles Mcclellan NP. I agree with her findings. Blood cultures are still being defined, with positive growth. Slow improvement in mentation. Continue supportive care, including HD prn. Escalate NGT diet
--- NOTE | 2019-10-07 18:06 | NUR ---
Dr. Cantu informed of AM lab results, dialysis scheduled for today. Wound care done to coccyx, L arm and bilateral shins. Dialysis removed [address] Bangura tube feeding NEPRO goal is 35ml/hr. Orders given by Fernando Castellon to place LTAC evaluation for rene kelly. Pt's daughter Kristi informed. Daughter asked to speak with physician about pt's status. Dr. Braxton Castellon informed and spoke with daughter Kristi. Vancomycin given after dialysis per order. Will continue to monitor the patient. Addendum: 10/07/19 at 1812 by Marcelle Wild RN Pt bridged from amiodarone drip to amiodarone PO by cardiology. Dr. Cantu gave orderers to d/c IVF.
[2019-10-08] VITALS (18 sets, daily range): BP systolic 90–133; BP diastolic 39–72
[2019-10-08 05:48] LABS: BASOPHILS % 0.1 % (0.0-1.0); HEMATOCRIT 25.3 % (38.2-49.6); HEMOGLOBIN 8.1 g/dL (14.0-18.0); LYMPHOCYTES # (AUTO) 0.4 (1.0-3.2); LYMPHOCYTES % 2.6 % (18.0-39.1); MEAN CORPUSCULAR VOLUME 75.1 fL (81-99); MONOCYTES # (AUTO) 0.4 (0.2-0.8); MONOCYTES % 3.1 % (4.4-11.3); NEUTROPHILS # (AUTO) 12.7 (2.1-6.9); NEUTROPHILS % 92.1 % (38.7-80.0); PLATELET COUNT 84 x10e3/uL (140-360); RED BLOOD COUNT 3.37 x10e6/uL (4.3-5.7); RED CELL DISTRIBUTION WIDTH 19.1 % (11.7-14.4)
[2019-10-08 06:06] LABS: ANION GAP 12.5 mmol/L (8-16); CALCIUM 8.4 mg/dL (8.4-10.2); CREATININE, SERUM 2.77 mg/dL (0.72-1.25); POTASSIUM 3.5 mmol/L (3.5-5.1)
--- NOTE | 2019-10-08 06:51 | Diagnostic Imaging Report ---
EXAMINATION: CHEST SINGLE (PORTABLE) INDICATION: Pneumonia COMPARISON: Chest radiograph 10/06/2019. FINDINGS: LINES/TUBES:Right IJ non-tunneled hemodialysis catheter terminates in the SVC. LUNGS:The lungs are hyperinflated. Biapical pleural parenchymal thickening/scarring. There is perihilar fullness and indistinctness of the pulmonary vasculature. Lower lung zone opacities, slightly increased on the left and decreased on the right. PLEURA: Small left pleural effusion. No pneumothorax. MEDIASTINUM:The cardiomediastinal silhouette appears unchanged in size and shape. BONES/SOFT TISSUES:No acute osseous injury. ABDOMEN:Status post cholecystectomy. IMPRESSION: Findings of pulmonary edema and small left pleural effusion. Bibasilar opacities, increased on the left and decreased on the right may represent atelectasis or pneumonia in the appropriate clinical setting. Signed by: Dr. Tiffanie Palmer MD on 10/08/2019 6:48 AM
[2019-10-08] MEDS: BALSAM PERU/CASTOR OIL 60 GM OINT...G. TP SCH (08:37)
[2019-10-08] MEDS: AMIODARONE HCL 200 MG TAB PO SCH ×2 (08:37→16:42)
[2019-10-08] MEDS: HEPARIN SOD (PORCINE) 5,000 UNIT/ML VIAL SC SCH ×2 (08:50→20:43)
[2019-10-08 09:11] LABS: BAND NEUTROPHILS % (MANUAL) 4 %; LYMPHOCYTES % (MANUAL) 2 % (19-48); MONOCYTES % (MANUAL) 2 % (3.4-9.0); NEUTROPHILS % (MANUAL) 92 % (40-74)
--- NOTE | 2019-10-08 10:55 | NUR ---
Spoke with Hussein Martins with [facility]. States they are still pending insurance authorization.
--- NOTE | 2019-10-08 12:00 | NUR ---
Patient with noted VT, on assessment, patient pulseless; CPR and CODE Blue activated. Patient intubated and mechanically ventilated. Daughter, Kristi, wishes for all life-saving attempts be made. Curtis Bangura and Braxton Castellon aware.
[2019-10-08] MEDS ORDERED: VANCOMYCIN 1GM/NS 250 ML 250 ML IV SCH (12:15)
[2019-10-08] MEDS ORDERED: NOREPINEPHRINE 8 MG/D5W 250 ML 250 ML ONE ×2 (12:28→20:18)
[2019-10-08] MEDS ORDERED: POTASSIUM CHLORIDE 20MEQ/100ML 100 ML IV ONE (12:30)
--- NOTE | 2019-10-08 12:54 | Progress Note ---
DATE: SUBJECTIVE: Mr. Salmon's condition deteriorated today. He had cardiac arrest. CPR is in progress. The patient is not responding. His white count today is 13.8, hemoglobin of 8.1. His sodium is 139, potassium 3.5 with creatinine of 2.77. The patient is in the process of getting CPR. His prognosis is extremely poor. Discussed with the ER physician, who is doing the CPR. Discussed with the medical team. We called the family and they are aware of how sick he is. LABORATORY DATA: Reviewed. Chart reviewed. PHYSICAL EXAMINATION: He is very critical, intubated, CPR in progress. IMPRESSION: 1. Sepsis on admission. 2. Cardiac arrest. 3. History of hypertension, history of cholecystectomy, and atrial fibrillation. Prognosis is extremely grim. CPR is in progress. There is a good chance that the patient may not survive this. MD JAME Viera/KANDY /[id number]
[2019-10-08] MEDS: FENTANYL CITRATE/PF 100MCG/2 ML INJ IV PRN ×3 (12:55→21:48)
--- NOTE | 2019-10-08 13:09 | Diagnostic Imaging Report ---
EXAMINATION: CHEST SINGLE (PORTABLE) INDICATION: ^ETT placement ^[id number] ^1256 COMPARISON: 40 01/16/2020 FINDINGS: AP view TUBES and LINES: Interval placement of endotracheal tube with tip overlying the mid trachea, 2.2 cm above the neva. Right IJ and infradiaphragmatic NG/O NG tube are unchanged. LUNGS: Lungs are well inflated. Persistent bilateral alveolar consolidations. PLEURA: No pleural effusion or pneumothorax. HEART AND MEDIASTINUM: The cardiomediastinal silhouette is unremarkable.. BONES AND SOFT TISSUES: No acute osseous lesion. Soft tissues are unremarkable. UPPER ABDOMEN: No free air under the diaphragm. IMPRESSION: Interval endotracheal tube placement which is in adequate position. Unchanged multifocal areas of alveolar opacities consistent with multifocal pneumonia. Signed by: Dr. Brinda Johns M.D. on 10/08/2019 1:05 PM
--- NOTE | 2019-10-08 15:57 | NUR ---
Pulmonary Critical Care Medicine DATE 10/08/2019 SUBJECTIVE: patient with arrythmia noted, wide complex tachycardia patient degenerated to cardiac arrest, with rapid ROSC due to witness/~anticipated event family wants/ daughter wants aggressive care patient was intubated some excess airway secretions noted weller in place 16/400/100/6 pk 11 rr 26 mv 10 L/min REVIEW OF SYSTEMS: Unable to get as he is altered. PHYSICAL EXAMINATION: VITAL SIGNS: Vitals reviewed per EMR GENERAL: obtunded, on HD HEENT: Normocephalic and atraumatic. NECK: Supple. Throat midline. LUNGS: Bilateral air entry, moderate rhonchi CARDIOVASCULAR: S1 and S2. No murmurs, rubs, or gallops. ABDOMEN: Soft and nontender. EXTREMITIES: No clubbing. No cyanosis. no edema. INTEGUMENT: No rash. mild stasis changes to legs without jose d edema. LABORATORY DATA: bun 28, cr 2.77, k 3.5. wbc 13.9, hct 25, plt 84 IMPRESSION AND PLAN: 0. acute respiratory failure, intubated. 1. Severe sepsis, evolving multiorgan dysfunction. --BCX septicemia vs contaminant 2. Urinary tract infection 2. Pneumonia 3. Encephalopathy, toxic/metabolic. Underlying dementia surmised. 4. Hypernatremia. 5. Mild anemia. 6. Coagulopathy, mostly Xarelto related. Rule out superimposed disseminated intravascular coagulation. 7. Acute kidney failure. 8. Lactic acidosis. 9. Mild hypoalbuminemia, likely worsened. 10. Severe dehydration. 11. Hematuria. 12. Hypertension. 13. ? BPH on Flomax. 14. Atrial fibrillation with rate control. 15. low platelets Continue steady hydration, serial lytes per renal HD today, in progress COVID 19 negative Follow cultures to final, follow final results. get sputum cx Continue oxygen per protocol for now. Continue Antibiotics as ordered Consider resuming tube feeds if he stabilizes follow HIT ab CXR tomorrow to re-assess pneumonia / fluid overload Thank you very much, Dr. Castellon, for this consult. Please call for questions.
[2019-10-08] MEDS: EPOETIN ALFA-EPBX 10,000 UNIT/ML VIAL SC SCH (16:42)
[2019-10-08] MEDS: CEFEPIME 1GM/NS 0.9% 50 ML 50 ML IV SCH (16:42)
[2019-10-08 17:06] LABS: ABG HCO3 24 mmol/L (22-26); ABG PCO2 45 mmHg (35-45); ABG PH 7.33 (7.35-7.45)
[2019-10-08] MEDS ORDERED: SODIUM BICARBONATE 8.4% 50 ML VIAL ONE (17:31)
[2019-10-08] MEDS ORDERED: EPINEPHRINE HCL SYRINGE ONE (17:31)
[2019-10-08] MEDS: NOREPINEPHRINE INJ 4MG/4ML 8 MG in DEXTROSE 5% 250ML 250 ML IV PRN (20:26)
[2019-10-09] VITALS (28 sets, daily range): BP systolic 80–120; BP diastolic 52–74
[2019-10-09 06:41] LABS: BASOPHILS % 0.2 % (0.0-1.0); EOSINOPHILS % 0.1 % (0.0-6.0); HEMATOCRIT 24.7 % (38.2-49.6); HEMOGLOBIN 8.1 g/dL (14.0-18.0); LYMPHOCYTES # (AUTO) 0.3 (1.0-3.2); LYMPHOCYTES % 2.4 % (18.0-39.1); MEAN CORPUSCULAR HEMOGLOBIN 24.5 pg (28-32); MEAN CORPUSCULAR HGB CONC 32.8 g/dL (31-35); MEAN CORPUSCULAR VOLUME 74.8 fL (81-99); MONOCYTES # (AUTO) 0.5 (0.2-0.8); MONOCYTES % 3.7 % (4.4-11.3); NEUTROPHILS % 92.5 % (38.7-80.0); PLATELET COUNT 97 x10e3/uL (140-360); RED CELL DISTRIBUTION WIDTH 19.2 % (11.7-14.4)
[2019-10-09 06:59] LABS: ANION GAP 13.7 mmol/L (8-16); CALCIUM 8.4 mg/dL (8.4-10.2); CREATININE, SERUM 4.07 mg/dL (0.72-1.25); POTASSIUM 3.7 mmol/L (3.5-5.1)
--- NOTE | 2019-10-09 07:24 | Diagnostic Imaging Report ---
EXAMINATION: CHEST SINGLE (PORTABLE) INDICATION: Pneumonia COMPARISON: Chest radiograph 10/08/2019. FINDINGS: LINES/TUBES:Right IJ non-tunneled hemodialysis catheter terminates in the SVC. Enteric tube terminates in the stomach, the side-port is near the GE junction. ET tube terminates 3.7 cm above the neva. LUNGS:The lungs are hyperinflated. Biapical pleural parenchymal thickening/scarring. Unchanged bilateral mid and lower lung zone opacities, left greater than right. PLEURA: Possible trace bilateral pleural effusions. No pneumothorax. Likely skin folds overlying the left lateral mid hemithorax. MEDIASTINUM:The cardiomediastinal silhouette appears unchanged in size and shape. BONES/SOFT TISSUES:No acute osseous abnormality. ABDOMEN:Status post cholecystectomy. IMPRESSION: Enteric tube terminates in the stomach, the side-port is near the GE junction. Consider advancement by approximately 3 cm. Other lines and tubes as above. Unchanged multifocal opacities, which may represent multifocal pneumonia, possibly with superimposed pulmonary edema. Signed by: Dr. Tiffanie Palmer MD on 10/09/2019 7:20 AM
[2019-10-09] MEDS: AMIODARONE HCL 200 MG TAB PO SCH ×2 (08:46→16:17)
[2019-10-09] MEDS: FAMOTIDINE 20 MG/2 ML VIAL IV SCH (08:46)
[2019-10-09] MEDS: HEPARIN SOD (PORCINE) 5,000 UNIT/ML VIAL SC SCH ×2 (08:49→21:00)
[2019-10-09] MEDS: BALSAM PERU/CASTOR OIL 60 GM OINT...G. TP SCH (08:49)
[2019-10-09] MEDS: CEFEPIME 1GM/NS 0.9% 50 ML 50 ML IV SCH (15:25)
--- NOTE | 2019-10-09 16:10 | NUR ---
Pulmonary Critical Care Medicine DATE 10/09/2019 SUBJECTIVE: tube feeds 25/hr water 100 q4 hrs levophed 10/min 16/400/80/5 REVIEW OF SYSTEMS: cant get, intubated PHYSICAL EXAMINATION: VITAL SIGNS: Vitals reviewed per EMR GENERAL: intubated, awakens easily HEENT: Normocephalic and atraumatic. NECK: Supple. Throat midline. LUNGS: Bilateral air entry, moderate rhonchi CARDIOVASCULAR: S1 and S2. No murmurs, rubs, or gallops. ABDOMEN: Soft and nontender. EXTREMITIES: No clubbing. No cyanosis. no edema. INTEGUMENT: No rash. mild stasis changes to legs without jose d edema. LABORATORY DATA: bun 47, cr 4.07. wbc 14, hct 25, plt 97 IMPRESSION AND PLAN: 0. acute respiratory failure, intubated. 1. Severe sepsis, evolving multiorgan dysfunction. --BCX septicemia vs contaminant 2. Urinary tract infection 2. Pneumonia 3. Encephalopathy, toxic/metabolic. Underlying dementia surmised. 4. Hypernatremia. 5. Mild anemia. 6. Coagulopathy, mostly Xarelto related. Rule out superimposed disseminated intravascular coagulation. 7. Acute kidney failure. 8. Lactic acidosis. 9. Mild hypoalbuminemia, likely worsened. 10. Severe dehydration. 11. Hematuria. 12. Hypertension. 13. ? BPH on Flomax. 14. Atrial fibrillation with rate control. 15. low platelets Continue steady hydration, serial lytes per renal HD today, in progress COVID 19 negative Follow cultures to final, follow final results. get sputum cx Continue oxygen per protocol for now. Continue Antibiotics as ordered Continue tube feeds follow HIT ab CXR tomorrow to re-assess pneumonia / fluid overload Thank you very much, Dr. Castellon, for this consult. Please call for questions.
[2019-10-10] VITALS (51 sets, daily range): BP systolic 78–121; BP diastolic 42–89
[2019-10-10] MEDS: FENTANYL CITRATE/PF 100MCG/2 ML INJ IV PRN ×2 (00:33→14:38)
[2019-10-10] MEDS ORDERED: NOREPINEPHRINE 8 MG/D5W 250 ML 250 ML ONE (01:42)
[2019-10-10] MEDS: NOREPINEPHRINE INJ 4MG/4ML 8 MG in DEXTROSE 5% 250ML 250 ML IV PRN (02:00)
[2019-10-10 06:36] LABS: BASOPHILS % 0.2 % (0.0-1.0); EOSINOPHILS # (AUTO) 0.1 (0.0-0.4); EOSINOPHILS % 0.4 % (0.0-6.0); LYMPHOCYTES # (AUTO) 0.5 (1.0-3.2); LYMPHOCYTES % 3.5 % (18.0-39.1); MEAN CORPUSCULAR HEMOGLOBIN 24.6 pg (28-32); MEAN CORPUSCULAR HGB CONC 33.5 g/dL (31-35); MEAN CORPUSCULAR VOLUME 73.6 fL (81-99); MONOCYTES # (AUTO) 0.3 (0.2-0.8); MONOCYTES % 2.1 % (4.4-11.3); NEUTROPHILS % 92.4 % (38.7-80.0); PLATELET COUNT 76 x10e3/uL (140-360); RED CELL DISTRIBUTION WIDTH 19.3 % (11.7-14.4)
[2019-10-10 06:39] LABS: HEMATOCRIT 20.6 % (38.2-49.6); HEMOGLOBIN 6.9 g/dL (14.0-18.0)
[2019-10-10 06:51] LABS: ANION GAP 18.3 mmol/L (8-16); CALCIUM 8.3 mg/dL (8.4-10.2); CREATININE, SERUM 5.01 mg/dL (0.72-1.25); POTASSIUM 3.3 mmol/L (3.5-5.1)
--- NOTE | 2019-10-10 06:54 | NUR ---
Page out to Dr. Braxton Castellon regarding critical H&H.
[2019-10-10 07:26] LABS: LYMPHOCYTES % (MANUAL) 3 % (19-48); METAMYELOCYTES % (MANUAL) 2 % (0-0); MONOCYTES % (MANUAL) 5 % (3.4-9.0); NEUTROPHILS % (MANUAL) 90 % (40-74)
[2019-10-10 07:27] LABS: ANISOCYTOSIS MODE; HYPOCHROMASIA SLIGHT; OVALOCYTES FEW; PLATELET ESTIMATE MODERATELY DECREASED; POIKILOCYTOSIS SLIGHT; RBC MORPHOLOGY COMMENT ABNORMAL
[2019-10-10] MEDS ORDERED: SODIUM CHLORIDE 0.9% 250ML 250 ML IV NR (08:30)
[2019-10-10] MEDS: BALSAM PERU/CASTOR OIL 60 GM OINT...G. TP SCH (09:39)
[2019-10-10] MEDS: FAMOTIDINE 20 MG/2 ML VIAL IV SCH (09:51)
[2019-10-10] MEDS: AMIODARONE HCL 200 MG TAB PO SCH ×2 (09:51→16:15)
[2019-10-10] MEDS: HEPARIN SOD (PORCINE) 5,000 UNIT/ML VIAL SC SCH (09:52)
--- NOTE | 2019-10-10 09:59 | Diagnostic Imaging Report ---
EXAMINATION: CHEST SINGLE (PORTABLE) INDICATION: Pneumonia COMPARISON: Multiple prior chest radiograph, most recently 10/09/2019 FINDINGS: LINES/TUBES:Endotracheal tube terminates 2 cm above the neva. Right IJ nontunneled dialysis catheter terminates in the superior vena cava. Enteric tube with tip and side-port in the stomach. EKG leads overlie the chest. LUNGS:The lungs are moderately inflated. Unchanged mild bilateral interstitial and airspace opacities. PLEURA:No pleural effusion or pneumothorax. MEDIASTINUM:The cardiomediastinal silhouette appears unchanged in size and shape. Atherosclerotic calcifications of the thoracic aorta. BONES/SOFT TISSUES:No acute osseous injury. ABDOMEN:No free air under the diaphragm. IMPRESSION: No significant interval change. Signed by: Blanco Elizabeth MD on 10/10/2019 9:55 AM
--- NOTE | 2019-10-10 11:59 | NUR ---
CALL RECEIVED FROM [facility] THIS AM STATING THEY RECEIVED AUTH FOR A BED AT [facility]. DISCUSSED PT ON VENT AND IS ON LEVOPHED DRIP. REQUESTED UPDATED CLINICALS TO HAVE THEIR INTAKE REVIEW IF PT OK TO STILL TRANSFER. DR. HUMPHREY WAS NOTIFIED OF APPROVAL AND IS OK W THE PT TRANSFERRING TODAY IF ACCEPTED. UPDATED MAR AND CLINICAL FAXED TO [facility] @ [phone].
[2019-10-10 12:44] LABS: ABG BASE EXCESS 0.4 mmol/L (-2 - 3); ABG HCO3 24 mmol/L (21-29); ABG OXYGEN SATURATION 99.6 % (96-97); ABG PCO2 35 mmHg (35-45); ABG PH 7.45 (7.35-7.45)
--- NOTE | 2019-10-10 12:58 | NUR ---
Pulmonary Critical Care Medicine DATE 10/10/2019 SUBJECTIVE: little UOP lethargic no seddation needed intubated, 16/400/40/5 7.45/35/231 REVIEW OF SYSTEMS: cant get, intubated PHYSICAL EXAMINATION: VITAL SIGNS: Vitals reviewed per EMR GENERAL: intubated, awakens easily HEENT: Normocephalic and atraumatic. NECK: Supple. Throat midline. LUNGS: Bilateral air entry, moderate rhonchi CARDIOVASCULAR: S1 and S2. No murmurs, rubs, or gallops. ABDOMEN: Soft and nontender. EXTREMITIES: No clubbing. No cyanosis. no edema. INTEGUMENT: No rash. mild stasis changes to legs without jose d edema. LABORATORY DATA: bun 47, cr 4.07. wbc 14, hct 25, plt 97 IMPRESSION AND PLAN: 0. acute respiratory failure, intubated. 1. Severe sepsis, evolving multiorgan dysfunction. --BCX septicemia vs contaminant 2. Urinary tract infection 2. Pneumonia 3. Encephalopathy, toxic/metabolic. Underlying dementia surmised. 4. Hypernatremia. 5. Mild anemia. 6. Coagulopathy, mostly Xarelto related. Rule out superimposed disseminated intravascular coagulation. 7. Acute kidney failure. 8. Lactic acidosis. 9. Mild hypoalbuminemia, likely worsened. 10. Severe dehydration. 11. Hematuria. 12. Hypertension. 13. ? BPH on Flomax. 14. Atrial fibrillation with rate control. 15. low platelets Continue steady hydration, serial lytes per renal HD today, intermittent scheduling COVID 19 negative Follow cultures to final, follow final results. get sputum cx Continue oxygen per protocol for now. Continue Antibiotics as ordered Continue tube feeds wean attempts starting tomorrow CXR tomorrow to re-assess pneumonia / fluid overload Thank you very much, Dr. Castellon, for this consult. Please call for questions.
--- NOTE | 2019-10-10 15:35 | Diagnostic Imaging Report ---
EXAMINATION: CHEST SINGLE (PORTABLE) INDICATION: Intubation COMPARISON: Chest radiograph 10/10/2019 FINDINGS: LINES/TUBES:Endotracheal tube terminates approximately 4 cm above the neva. Right IJ nontunneled dialysis catheter terminates in the superior vena cava. Enteric tube with tip and side-port in the stomach. EKG leads overlie the chest. LUNGS:Interval increase in left basilar opacity silhouetting the left hemidiaphragm. Other mild bilateral interstitial and airspace opacities appear unchanged. PLEURA:No pleural effusion or pneumothorax. MEDIASTINUM:The cardiomediastinal silhouette appears unchanged in size and shape. BONES/SOFT TISSUES:No acute osseous injury. ABDOMEN:No free air under the diaphragm. IMPRESSION: Lines and tubes as above. Interval increase in left basilar opacity, most likely atelectasis. Other bilateral interstitial and airspace opacities unchanged. Signed by: Blanco Elizabeth MD on 10/10/2019 3:31 PM
[2019-10-10] MEDS: CEFEPIME 1GM/NS 0.9% 50 ML 50 ML IV SCH (15:39)
--- NOTE | 2019-10-10 16:35 | NUR ---
CALL PLACED TO DR. Braxton HUMPHREY, AWAITING RETURN CALL
--- NOTE | 2019-10-10 17:15 | NUR ---
[id number] late james also note for today dictated
--- NOTE | 2019-10-10 17:40 | NUR ---
2ND CALL PLACED TO DR. Braxton HUMPHREY REGARDING DISCHARGE, AWAITING RETURN CALL
--- NOTE | 2019-10-10 18:42 | Progress Note ---
DATE: SUBJECTIVE: Mr. Salmon remains in intensive care unit. The plan for him to go to LTAC. The patient is noncommunicative. His vitals remain stable, but critical. Family with unrealistic expectation. Laboratory data reviewed. PHYSICAL EXAMINATION: GENERAL: He is currently alert. VITALS: Stable, currently afebrile. HEENT: Not icteric. NECK: Supple. CHEST: Clear. COR: S1-S2, no murmurs. ABDOMEN: Soft. IMPRESSION: 1. Sepsis on admission, status post seems to be resolved. 2. Status post cardiac arrest. 3. Prognosis remains extremely poor. Continue supportive care. We will follow. MD JAME Viera/MODL /[id number]
--- NOTE | 2019-10-10 18:57 | Progress Note ---
DATE: SUBJECTIVE: Mr. Salmon was seen on October 08. This was dictated later. The patient remains in intensive care unit. He had CPR. The patient is currently noncommunicative. His vitals remained stable, but critical. MEDICATION LIST: Reviewed. REVIEW OF SYSTEMS: There is nothing new. The patient is less communicative. PHYSICAL EXAMINATION: GENERAL: He is intubated and sedated. VITAL SIGNS: Stable, currently afebrile. HEENT: Not icteric. NECK: Supple. CHEST: Few crackles bilaterally. COR: S1, S2. No S3, S4 or murmur ABDOMEN: Soft. IMPRESSION: Sepsis on admission, resolved but remains very ill and critical status post CPR. Prognosis remains very poor. I discussed with the medical team. The family would like us to transfer the patient to [place]. I do not think they have realistic expectation. MD JAME Viera/KANDY /[id number]
--- NOTE | 2019-10-10 20:14 | NUR ---
Pt transferred to [facility] via EMS. Pt stable, on ventilator.
[2019-10-21 10:40] LABS: ABG PO2 231 mmHg (80-90)
--- NOTE | 2019-11-08 02:57 | Discharge Summary ---
CHIEF COMPLAINT: Fever and short of breath. FINAL DIAGNOSES: Respiratory failure status post CPR, sepsis. DISPOSITION: Leanna Cook, on the vent. HOSPITAL COURSE: An 84-year-old male with known history of anemia and chronic disease, coronary artery disease, hypertension. He was brought to the ER by his daughter with issues of fever, shortness of breath, frequent cough. He was found to be extremely dry in the ER evaluation. Further care and workup, x-rays reviewed showed evidence of pneumonia. The patient was admitted to ICU on 100% O2 care along with IV antibiotics and IV fluids. The patient was noted to have a sodium extremely elevated to 170. He was lethargic, but arousable. Care will be addressed regarding shortness of breath, cough, fever, aspiration pneumonia, sepsis, acute kidney injury, extreme dehydration. As mentioned, he will be receiving IV antibiotics, IV fluids, requesting Infectious Disease followup as well as the Pulmonary followup will be evaluating for COVID-19. CONSULTANTS: With admission Pulmonary Critical Care, Dr. Bangura. Following his review, his findings were severe sepsis, evolving multiorgan dysfunction, febrile syndrome, sepsis, UTI and pneumonia, rule out other conditions. Encephalopathy, toxic/metabolic, underlying dementia surmise. Critical hypernatremia, mild anemia, coagulopathy likely Xarelto related, acute kidney failure, lactic acidosis, mild hypoalbuminemia likely worsened, severe dehydration, hematuria, hypertension surmise, benign prostatic hypertrophy on Flomax, atrial fibrillation with a rate control. Recommendations, try to avoid intubation, but the patient may need intubation. The patient is in very critical condition. Further consultants, Infectious Disease with Dr. Ruiz regarding issues of pneumonia. Following his evaluation, an impression was made of sepsis present on admission, acute on chronic kidney disease, concerned about aspiration pneumonia, dehydration, hypernatremia. The patient will be receiving cefepime and azithromycin. We are waiting on COVID-19 results. Prognosis is poor. Also being seen by Nephrology, Dr. Cantu. The laboratory findings are indicative of acute kidney injury along with the severe hypernatremia. Following his review his impression was acute kidney injury, suspect secondary to acute tubular necrosis. Continue IV fluids. If condition worsens, we will initiate dialysis at the following day. Volume deplete on exam. Hypernatremia will continue to correct over 48 hours. Pneumonia. Interventional Radiology was consulted as well for the need for a non-tunneled temporary dialysis catheter placement. Cardiology was also brought in consult due to findings of recurrent arrhythmias, being seen by Dr. Carrero. With his findings, his results were severe sepsis with evidence of pneumonia, acute kidney injury, failure to thrive, severe hypernatremia. Paroxysmal atrial arrhythmias in a gentleman who is known to have paroxysmal atrial fibrillation. Acute hypoxic respiratory failure, thrombocytopenia, disseminated intravascular coagulation. We will initiate amiodarone therapy for rhythm control. During his stay, the patient had a rapid event on 10/07. The patient went into a pulseless event. Protocols were put in place. The patient was already in ICU. The patient maintained ICU status. The patient did recover from the event. In the ER, the patient was advised to , started on the antibiotics, given some morphine for pain control. His daily medications as well. Vital signs and laboratory studies were being monitored further. He was being reviewed by multiple consultants, on a cardiac diet. The COVID-19 test returned negative. Sepsis was resolved. His rhabdomyolysis was resolved. Discussions were being made to transfer the [facility]. However, the patient was remaining unresponsive, continued on vent requirement. Also, for now he was having some issues with , lethargic episodes, arterial valve. The temporary tunneled catheter was placed. The patient was given dialysis to correct metabolic condition, stabilize the acid-base balance. Discussions were also being entertained for transfer to LTAC facility. As mentioned, he underwent the . The dialysis was continued. The antibiotics were continued. Questions were also being placed with the family for possible hospice placement, code status. Case management assistance was brought in to assist placement to [facility]. He was accepted to that facility, was transferred there in guarded condition to ICU, anemic, elevated white count, hypokalemia. IMAGING: Chest x-ray shows no acute intrathoracic abnormality. There is probably bronchiectasis in the right medial upper lobe. There is some scarring in the left apex wall and the nodular base, which measured 1.3 cm. Renal ultrasound shows no hydronephrosis or renal calculi. Mildly increased left renal parenchymal echogenicity. Bilateral renal cysts including a right upper pole cyst, which contains internal septation, Bosniak classification 2. Portable chest x-rays were conducted during the stay to monitor the patient's pulmonary status. Abdomen x-ray reveals enteric tube terminates in the stomach. Paucity of gas within bowel status post cholecystectomy. Final chest x-ray compared to the previous studies shows interval increase in left basilar opacity, most likely atelectasis. Other bilateral interstitial and airspace opacities are unchanged. With the hemoglobin dropped to 6.9, the patient did undergo transfusion of 1 unit of packed RBC. CULTURES: Gram stain were showing gram cultures were negative. Blood culture and urine culture were negative. LABORATORY STUDIES: Initial CBC shows white cell count 20,100, H and H were 10.8 and 34.7, platelets dropped down to 76, 000. However, white blood cell counts remain elevated. They were as high as 15,000, final study is 13, 000. . Serology is negative. Negative COVID-19. Negative . Urinalysis 1+ protein, 4+ occult blood, 1+ bilirubin, 20 RBCs by high-power field, 6-10 wbc's by high-power field. The initial panel shows a severe hypernatremia then of 74, potassium was normal, BUN was 50, creatinine was 5.02. Glucose 119. BNP was 254.7. Sodium levels were continuously watched. They were slowly coming down. Final sodium at the time of transfer was 139. Potassium was also stable up until the time of transfer at the level of 3.3. BUN and creatinine fell to 33 and 3.85. Final transfer evaluation was 65 and 5.01. Final glucose 135. The patient was transferred to [facility] ICU in relation to the respiratory protocol including management of electrolytes. Transferred down to ICU intubated EMS. . IV access was on board. on board. We will continue current medications and we are requesting continue pulmonary followup with the need for further vent support as well as continued Nephrology followup. I will be managing the patient daily. Adjustments will be made to his protocols as needed. Dictated by BERTHA Mccollum MD BECCA Kathleen/KANDY /[id number]
== END 2019-10-10 20:13 | DRG 871 ==
LOC: ER 12:25 → ERHOLD 15:13 → ICU 18:13
PROC: 02HV33Z Insertion of Infusion Device into Superior Vena Cava, Percutaneous Approach (ICD-10-PCS; 2019-10-05)
PROC: B548ZZA Ultrasonography of Superior Vena Cava, Guidance (ICD-10-PCS; 2019-10-05)
PROC: 5A1D70Z Performance of Urinary Filtration, Intermittent, Less than 6 Hours Per Day (ICD-10-PCS; 2019-10-05)
PROC: 5A1D70Z Performance of Urinary Filtration, Intermittent, Less than 6 Hours Per Day (ICD-10-PCS; 2019-10-06)
PROC: 5A1D70Z Performance of Urinary Filtration, Intermittent, Less than 6 Hours Per Day (ICD-10-PCS; 2019-10-07)
PROC: 5A1945Z Respiratory Ventilation, 24-96 Consecutive Hours (ICD-10-PCS; principal; 2019-10-08)
PROC: 0BH17EZ Insertion of Endotracheal Airway into Trachea, Via Natural or Artificial Opening (ICD-10-PCS; 2019-10-08)
PROC: 5A12012 Performance of Cardiac Output, Single, Manual (ICD-10-PCS; 2019-10-08)
PROC: 3E063XZ Introduction of Vasopressor into Central Artery, Percutaneous Approach (ICD-10-PCS; 2019-10-08)
PROC: 30233N1 Transfusion of Nonautologous Red Blood Cells into Peripheral Vein, Percutaneous Approach (ICD-10-PCS; 2019-10-10)
DX: A41.9 Sepsis, unspecified organism (principal); G93.41 Metabolic encephalopathy; J69.0 Pneumonitis due to inhalation of food and vomit; D65 Disseminated intravascular coagulation [defibrination syndrome]; N17.0 Acute kidney failure with tubular necrosis; J96.21 Acute and chronic respiratory failure with hypoxia; I46.9 Cardiac arrest, cause unspecified; E43 Unspecified severe protein-calorie malnutrition; N39.0 Urinary tract infection, site not specified; E87.0 Hyperosmolality and hypernatremia; E87.2 Acidosis; R64 Cachexia; M62.82 Rhabdomyolysis; R57.9 Shock, unspecified; E88.09 Other disorders of plasma-protein metabolism, not elsewhere classified; E86.0 Dehydration; R65.20 Severe sepsis without septic shock; D63.8 Anemia in other chronic diseases classified elsewhere; Z79.01 Long term (current) use of anticoagulants; N40.0 Benign prostatic hyperplasia without lower urinary tract symptoms; E11.9 Type 2 diabetes mellitus without complications; R62.7 Adult failure to thrive; I48.0 Paroxysmal atrial fibrillation; Z68.22 Body mass index [BMI] 22.0-22.9, adult; R53.81 Other malaise; F03.90 Unspecified dementia, unspecified severity, without behavioral disturbance, psychotic disturbance, mood disturbance, and anxiety; D69.6 Thrombocytopenia, unspecified; K57.30 Diverticulosis of large intestine without perforation or abscess without bleeding; Z90.49 Acquired absence of other specified parts of digestive tract; I50.9 Heart failure, unspecified; I11.0 Hypertensive heart disease with heart failure; L89.152 Pressure ulcer of sacral region, stage 2
CPT/HCPCS: 36415; 36556; 36600; 51700; 71045; 74018; 74470; 76770; 76937; 80048; 80053; 80202; 81001; 82150; 82550; 82553; 82728; 82805; 83518; 83605; 83615; 83690; 83735; 83880; 84100; 84484; 85025; 85379; 85610; 85730; 86022; 86704; 86705; 86706; 86850; 86900; 86920; 87040; 87070; 87071; 87086; 87205; 87340; 87400; 87633; 87635; 90962; 93005; 94002; 99251; 99285; C1769; J0171; J0456; J0692; J1630; J1644; J2001; J2060; J2150; J2543; J3010; J3370; J3411; J3480; J7030; J7060; J7070; P9016